=== PATIENT | female | born 1945 | race Caucasian/White ===

== ENCOUNTER 2018-02-12 20:39 | Emergency (ER) | payer OTHER ==
[~2018-02-12] VITALS: Ht 167.6 cm; Wt 68.0 kg
[~2018-02-12 20:39] MED LIST: AVAPRO75 MG PO; INDOCIN25 MG PO
[2018-02-13] MEDS ORDERED: ACIDOPHILUS1 EAC5 PO (08:36)
[2018-02-13] MEDS ORDERED: CIPRO500 MG PO (08:36)
[2018-02-13] MEDS ORDERED: PANTOPRAZOLE SO40 MG PO (08:36)
[2018-02-13] MEDS ORDERED: METRONIDAZOLE500 MG PO (08:36)
== END 2018-02-13 10:35 | disposition home or self-care (01) ==
LOC: ER 20:39
DX: K57.32 Diverticulitis of large intestine without perforation or abscess without bleeding (principal); E87.6 Hypokalemia

== ENCOUNTER 2018-11-09 13:16 | Emergency (ER) | payer OTHER ==
[~2018-11-09] VITALS: Ht 167.6 cm; Wt 68.0 kg
[~2018-11-09 13:16] MED LIST changes: +ACIDOPHILUS1 EAC5 PO; +CIPRO500 MG PO; +METRONIDAZOLE500 MG PO; +PANTOPRAZOLE SO40 MG PO
[2018-11-09] MEDS ORDERED: ECOTRIN81 MG (13:56)
[2018-11-09] MEDS ORDERED: CALAN SR120 MG (13:57)
[2018-11-09] MEDS ORDERED: PRILOSEC10 MG (13:58)
[2018-11-09] MEDS ORDERED: NITROSTAT0.4 MG (13:58)
== END 2018-11-09 17:02 | disposition home or self-care (01) ==
LOC: ER 13:16
DX: M25.561 Pain in right knee (principal)

== ENCOUNTER 2019-01-23 08:00 | Inpatient (IN) | payer OTHER ==
[~2019-01-23] VITALS: Ht 152.4 cm; Wt 68.0 kg
[~2019-01-23 08:00] MED LIST changes: +CALAN SR120 MG; +ECOTRIN81 MG; +NITROSTAT0.4 MG; +PRILOSEC10 MG
[2019-01-23] MEDS ORDERED: HYDROCHLOROTHIA25 MG PO (09:59)
[2019-01-23] MEDS ORDERED: ANTIVERT PO (10:00)
[2019-01-23] MEDS ORDERED: ZANTAC300 MG PO (10:00)
[2019-01-23] MEDS ORDERED: MOVIC PO (10:01)
[2019-01-23] MEDS ORDERED: FOLIC ACID1 MG PO (10:01)
[2019-01-23] MEDS ORDERED: METHOTREXATE2.5 MG PO (10:01)
[2019-01-29] MEDS ORDERED: MOBIC15 MG PO (08:07)
[2019-01-29] MEDS ORDERED: MECLIZINE HCL25 MG PO (08:08)
== END 2019-02-01 15:02 | DRG 467 ==
LOC: O/R 01-29 07:25 → SURG 01-29 07:25 → O/R 01-29 08:00 → SURG 01-29 14:44
PROVIDERS: ADMIT Orthopaedic Surgery
PROC: 0SWC0JZ Revision of Synthetic Substitute in Right Knee Joint, Open Approach (ICD-10-PCS; principal; 2019-01-29 13:00)
DX: T84.032A Mechanical loosening of internal right knee prosthetic joint, initial encounter (principal); D62 Acute posthemorrhagic anemia; T84.84XA Pain due to internal orthopedic prosthetic devices, implants and grafts, initial encounter; M17.11 Unilateral primary osteoarthritis, right knee

== ENCOUNTER 2019-09-10 17:23 | Emergency (ER) | payer OTHER ==
[~2019-09-10] VITALS: Ht 167.6 cm; Wt 68.0 kg
[~2019-09-10 17:23] MED LIST changes: +ANTIVERT PO; +FOLIC ACID1 MG PO; +HYDROCHLOROTHIA25 MG PO; +MECLIZINE HCL25 MG PO; +METHOTREXATE2.5 MG PO; +MOBIC15 MG PO; +MOVIC PO; +ZANTAC300 MG PO
[2019-09-10] MEDS ORDERED: PEPCID AC10 MG PO (17:56)
[2019-09-10] MEDS ORDERED: ANTIVERT PO (17:57)
== END 2019-09-10 23:37 | disposition home or self-care (01) ==
LOC: ER 17:23 → CPU-OBS 17:31 → ER 17:31
DX: R55 Syncope and collapse (principal); W18.09XA Striking against other object with subsequent fall, initial encounter; Y93.89 Activity, other specified; Y92.89 Other specified places as the place of occurrence of the external cause; Y99.8 Other external cause status

== ENCOUNTER 2020-11-10 14:51 | Emergency (ER) | payer OTHER ==
[~2020-11-10] VITALS: Ht 167.6 cm; Wt 81.6 kg
[~2020-11-10 14:51] MED LIST changes: +PEPCID AC10 MG PO
== END 2020-11-10 18:41 | disposition home or self-care (01) ==
LOC: ER 14:51
DX: S00.83XA Contusion of other part of head, initial encounter (principal); S00.33XA Contusion of nose, initial encounter; M54.2 Cervicalgia; W18.31XA Fall on same level due to stepping on an object, initial encounter; Y93.01 Activity, walking, marching and hiking; Y92.018 Other place in single-family (private) house as the place of occurrence of the external cause; Y99.8 Other external cause status

== ENCOUNTER 2022-07-20 11:07 | Emergency (ER) | payer OTHER ==
[~2022-07-20] VITALS: Ht 167.6 cm; Wt 71.7 kg
[2022-07-20] MEDS ORDERED: ELIQUIS5 MG PO (11:32)
== END 2022-07-20 16:23 | disposition home or self-care (01) ==
LOC: ER 11:07
DX: S79.912A Unspecified injury of left hip, initial encounter (principal); W01.0XXA Fall on same level from slipping, tripping and stumbling without subsequent striking against object, initial encounter; Y93.F9 Activity, other caregiving; Y92.012 Bathroom of single-family (private) house as the place of occurrence of the external cause; I10 Essential (primary) hypertension; Z96.653 Presence of artificial knee joint, bilateral